=== PATIENT | male | born 1930 | race Caucasian/White ===

== ENCOUNTER → 2016-08-27 | Outpatient (CLI) | payer MEDICARE, OTHER ==
[~2016-08-27] MED LIST: ALBU83IN INH; ATEN50TA2 PO; ATOR40TA PO; CEFD300CAP PO; DULE200A INH; ELIQ5TAB PO; FURO20TA2 PO; GLIM2TAB PO; LASI40TA PO; LEVO125T41 PO; LISI-538 PO; METF500T PO; POTA10CA PO; SPIR1CAP INH
[2016-08-27 15:11] LABS: ALBUMIN 3.1 GM/DL (3.2-5.2); ALBUMIN/GLOBULIN RATIO 0.78 (1.00-1.93); BILIRUBIN,TOTAL 0.6 MG/DL (0.2-1.0); CALCIUM LEVEL 8.4 MG/DL (8.8-10.2); CREATININE FOR GFR 2.16 MG/DL (0.70-1.30); FREE T4 1.13 NG/DL (0.76-1.46); POTASSIUM SERUM 4.7 MEQ/L (3.5-5.1); TOTAL PROTEIN 7.1 GM/DL (6.4-8.2)
== END ==
LOC: M WUC 10:54
PROVIDERS: ATTEND Nurse Practitioner Family
DX: E11.9 Type 2 diabetes mellitus without complications (principal); E03.9 Hypothyroidism, unspecified

== ENCOUNTER → 2016-11-26 | Outpatient (CLI) | payer MEDICARE, OTHER ==
[2016-11-26 17:15] LABS: ALBUMIN 2.8 GM/DL (3.2-5.2); ALBUMIN/GLOBULIN RATIO 0.7 (1.00-1.93); BILIRUBIN,TOTAL 0.7 MG/DL (0.2-1.0); CALCIUM LEVEL 8.2 MG/DL (8.8-10.2); CREATININE FOR GFR 2.31 MG/DL (0.70-1.30); FREE T4 1.37 NG/DL (0.76-1.46); GLOMERULAR FILTRATION RATE 28.6 (>35); POTASSIUM SERUM 4.1 MEQ/L (3.5-5.1); TOTAL PROTEIN 6.8 GM/DL (6.4-8.2)
== END ==
LOC: M WUC 14:01
PROVIDERS: ATTEND Nurse Practitioner Family
DX: N18.9 Chronic kidney disease, unspecified (principal); E03.9 Hypothyroidism, unspecified; E11.9 Type 2 diabetes mellitus without complications

== ENCOUNTER → 2017-03-15 | Outpatient (CLI) | payer MEDICARE, OTHER ==
[~2017-03-15] MED LIST changes: -ATOR40TA PO; +ATOR40TA75 PO; -METF500T PO; +METF500T13 PO
[2017-03-15 13:38] LABS: ALBUMIN 2.9 GM/DL (3.2-5.2); ALBUMIN/GLOBULIN RATIO 0.69 (1.00-1.93); BILIRUBIN,TOTAL 0.7 MG/DL (0.2-1.0); CALCIUM LEVEL 8.1 MG/DL (8.8-10.2); CREATININE FOR GFR 2.12 MG/DL (0.70-1.30); FREE T4 1.21 NG/DL (0.76-1.46); GLOMERULAR FILTRATION RATE 31.6 (>35); POTASSIUM SERUM 4.5 MEQ/L (3.5-5.1); TOTAL PROTEIN 7.1 GM/DL (6.4-8.2)
== END ==
LOC: M WUC 09:18
PROVIDERS: ATTEND Nurse Practitioner Family
DX: I10 Essential (primary) hypertension (principal); E03.9 Hypothyroidism, unspecified; E11.9 Type 2 diabetes mellitus without complications

== ENCOUNTER 2017-09-28 17:24 | Inpatient (IN) | payer MEDICARE, OTHER ==
[2017-09-28 15:50] LABS: VENOUS BASE EXCESS 1.8 (-2.0-2.0); VENOUS HCO3 28.3 MEQ/L (23.0-27.0); VENOUS O2 SATURATION 46.4 % (60.0-80.0); VENOUS PARTIAL PRESSURE CO2 51.8 mmHg (38.0-50.0); VENOUS PARTIAL PRESSURE O2 26.7 mmHg (30.0-50.0); VENOUS PH 7.355 UNITS (7.330-7.430); VENOUS STANDARD HCO3 24.8 MEQ/L; VENOUS TOTAL CO2 29.9 MEQ/L (24.0-28.0)
[2017-09-28 15:51] LABS: BASO # 0.1 10^3/uL (0.0-0.2); BASO % 0.8 % (0.0-1.0); EOS # 0.3 10^3/uL (0.0-0.50); EOS % 2.9 % (0.0-3.0); HEMATOCRIT 38.8 % (42.0-52.0); HEMOGLOBIN 12.7 g/dl (13.5-17.5); IMMATURE GRANULOCYTE % 0.3 % (0-3.0); LYMPH # 0.8 10^3/uL (1.5-4.5); LYMPH % 9.1 % (24.0-44.0); MEAN CORPUSCULAR HEMOGLOBIN 30.6 pg (27.0-33.0); MEAN CORPUSCULAR HGB CONC 32.7 g/dl (32.0-36.5); MEAN CORPUSCULAR VOLUME 93.5 fl (80.0-96.0); MONO % 11.7 % (0.0-5.0); NEUTROPHILS # 6.5 10^3/uL (1.8-7.7); NEUTROPHILS % 75.2 % (36.0-66.0); PLATELET COUNT, AUTOMATED 218 10^3/uL (150-450); RED BLOOD COUNT 4.15 10^6/uL (4.30-6.10); RED CELL DISTRIBUTION WIDTH 14.3 % (11.5-14.5); WHITE BLOOD COUNT 8.6 10^3/uL (4.0-10.0)
[2017-09-28] MEDS: FUROSEMIDE 40 MG/4 ML VIAL (J1940) IV (16:13)
[2017-09-28 16:25] LABS: ANION GAP 6 MEQ/L (8-16); BLOOD UREA NITROGEN 32 MG/DL (7-18); CALCIUM LEVEL 8.3 MG/DL (8.8-10.2); CARBON DIOXIDE LEVEL 29 MEQ/L (21-32); CHLORIDE LEVEL 106 MEQ/L (98-107); CPK CREATINE PHOSPHOKINASE 201 U/L (39-308); CREATININE FOR GFR 2.01 MG/DL (0.70-1.30); GLOMERULAR FILTRATION RATE 33.5 (>35); GLUCOSE, FASTING 131 MG/DL (70-100); POTASSIUM SERUM 4.1 MEQ/L (3.5-5.1); SODIUM LEVEL 141 MEQ/L (136-145); TROPONIN I 1.11 NG/ML (< 0.10)
[2017-09-28 16:26] LABS: CK-MB VALUE MASS 8.4 NG/ML (<3.6); MB/CK RELATIVE INDEX 4.17 (< OR =4); NT-PRO BNP 6748 PG/ML (<450)
[2017-09-28 16:59] LABS: INFLUENZA A AMPLIFICATION NEGATIVE (NEGATIVE); INFLUENZA B AMPLIFICATION NEGATIVE (NEGATIVE)
[2017-09-28 19:44] LABS: CPK CREATINE PHOSPHOKINASE 186 U/L (39-308); MB/CK RELATIVE INDEX 4.83 (< OR =4); TROPONIN I 1.02 NG/ML (< 0.10)
[2017-09-28] MEDS ORDERED: ONDANSETRON 4MG/2ML VIAL (J2405) IV (20:15)
[2017-09-28] MEDS ORDERED: GLUCAGON FOR INJ 1 MG VIAL (J1610) SC (20:15)
[2017-09-28] MEDS ORDERED: DEXTROSE 50% 50 ML SYRINGE IV (20:15)
[2017-09-28] MEDS ORDERED: ACETAMINOPHEN TAB 650MG DOSE (2X325MG) PO (20:15)
[2017-09-28] MEDS ORDERED: GLUCOSE 4 GM CHEW TABLET PO (20:15)
[2017-09-28] MEDS: HumaLOG INSULIN (NovoLOG) PER UNIT SC (21:00)
[2017-09-28] MEDS: ADVAIR HFA 230/21MCG INHALER INH (21:00)
[2017-09-28] MEDS: ATORVASTATIN 20 MG TAB PO (22:07)
[2017-09-28] MEDS: APIXABAN 2.5 MG TAB (ELIQUIS) PO (22:07)
[2017-09-29] MEDS: IPRATROPIUM 0.5MG/ALBUTEROL 2.5MG INH SOL UD 3ML (DUONEB)(J7620) NEB ×5 (01:21→21:00)
[2017-09-29 03:38] LABS: CK-MB VALUE MASS 6.1 NG/ML (<3.6); CPK CREATINE PHOSPHOKINASE 145 U/L (39-308); TROPONIN I 1.18 NG/ML (< 0.10)
[2017-09-29] MEDS: LEVOTHYROXINE 125MCG TABLET (0.125MG) PO (05:39)
[2017-09-29] MEDS: HumaLOG INSULIN (NovoLOG) PER UNIT SC ×4 (07:30→21:00)
[2017-09-29 07:37] LABS: HEMATOCRIT 37.4 % (42.0-52.0); HEMOGLOBIN 12.1 g/dl (13.5-17.5); MEAN CORPUSCULAR HEMOGLOBIN 30.3 pg (27.0-33.0); MEAN CORPUSCULAR HGB CONC 32.4 g/dl (32.0-36.5); MEAN CORPUSCULAR VOLUME 93.7 fl (80.0-96.0); PLATELET COUNT, AUTOMATED 222 10^3/uL (150-450); RED BLOOD COUNT 3.99 10^6/uL (4.30-6.10); RED CELL DISTRIBUTION WIDTH 14.1 % (11.5-14.5); WHITE BLOOD COUNT 7.5 10^3/uL (4.0-10.0)
[2017-09-29 07:38] LABS: BEDSIDE GLUCOSE 83 MG/DL (83-110)
[2017-09-29 07:39] LABS: BEDSIDE GLUCOSE 64 MG/DL (83-110)
[2017-09-29 07:44] LABS: ALBUMIN 2.4 GM/DL (3.2-5.2); ALBUMIN/GLOBULIN RATIO 0.53 (1.00-1.93); ALKALINE PHOSPHATASE 165 U/L (45-117); ALT/SGPT 39 U/L (12-78); ANION GAP 5 MEQ/L (8-16); AST/SGOT 34 U/L (7-37); BILIRUBIN,TOTAL 0.7 MG/DL (0.2-1.0); BLOOD UREA NITROGEN 38 MG/DL (7-18); CALCIUM LEVEL 8.2 MG/DL (8.8-10.2); CARBON DIOXIDE LEVEL 29 MEQ/L (21-32); CHLORIDE LEVEL 111 MEQ/L (98-107); CREATININE FOR GFR 1.89 MG/DL (0.70-1.30); GLUCOSE, FASTING 54 MG/DL (70-100); MAGNESIUM LEVEL 2.4 MG/DL (1.8-2.4); SODIUM LEVEL 145 MEQ/L (136-145); TOTAL PROTEIN 6.9 GM/DL (6.4-8.2)
[2017-09-29] MEDS: TIOTROPIUM INHALER/CAPSULE (SPIRIVA) INH (07:50)
[2017-09-29] MEDS: ADVAIR HFA 230/21MCG INHALER INH ×2 (07:50→21:00)
[2017-09-29] MEDS: ASPIRIN 81 MG ENTERIC TAB PO (08:23)
[2017-09-29] MEDS: POTASSIUM CHLORIDE 10 MEQ SR TABLET PO (08:23)
[2017-09-29] MEDS: MULTIVITAMINS/MINERALS THERAP 1 TAB PO (08:23)
[2017-09-29] MEDS: APIXABAN 2.5 MG TAB (ELIQUIS) PO ×2 (08:23→21:13)
[2017-09-29] MEDS: FUROSEMIDE 40 MG/4 ML VIAL (J1940) IV ×2 (08:23→16:21)
[2017-09-29 15:16] LABS: CPK CREATINE PHOSPHOKINASE 155 U/L (39-308); TROPONIN I 1.13 NG/ML (< 0.10)
[2017-09-29 15:17] LABS: CK-MB VALUE MASS 6.1 NG/ML (<3.6); MB/CK RELATIVE INDEX 3.93 (< OR =4); NT-PRO BNP 7329 PG/ML (<450)
[2017-09-29 18:02] LABS: BEDSIDE GLUCOSE 119 MG/DL (83-110)
[2017-09-29 18:02] LABS: BEDSIDE GLUCOSE 199 MG/DL (83-110)
[2017-09-29] MEDS: ATORVASTATIN 20 MG TAB PO (21:13)
[2017-09-29] MEDS: LEVEMIR (INSULIN DETEMIR) 1 UNITS/0.01ML SC (21:14)
[2017-09-29 21:18] LABS: CK-MB VALUE MASS 6.3 NG/ML (<3.6); CPK CREATINE PHOSPHOKINASE 180 U/L (39-308); TROPONIN I 1.19 NG/ML (< 0.10)
[2017-09-30] MEDS: IPRATROPIUM 0.5MG/ALBUTEROL 2.5MG INH SOL UD 3ML (DUONEB)(J7620) NEB ×5 (02:18→19:41)
[2017-09-30 05:27] LABS: HEMATOCRIT 36.7 % (42.0-52.0); HEMOGLOBIN 11.8 g/dl (13.5-17.5); MEAN CORPUSCULAR HGB CONC 32.2 g/dl (32.0-36.5); MEAN CORPUSCULAR VOLUME 93.4 fl (80.0-96.0); PLATELET COUNT, AUTOMATED 224 10^3/uL (150-450); RED BLOOD COUNT 3.93 10^6/uL (4.30-6.10); RED CELL DISTRIBUTION WIDTH 13.9 % (11.5-14.5); WHITE BLOOD COUNT 7.3 10^3/uL (4.0-10.0)
[2017-09-30 05:50] LABS: ALBUMIN 2.4 GM/DL (3.2-5.2); ALBUMIN/GLOBULIN RATIO 0.52 (1.00-1.93); ALKALINE PHOSPHATASE 170 U/L (45-117); ALT/SGPT 39 U/L (12-78); ANION GAP 4 MEQ/L (8-16); AST/SGOT 34 U/L (7-37); BILIRUBIN,TOTAL 0.5 MG/DL (0.2-1.0); BLOOD UREA NITROGEN 37 MG/DL (7-18); CALCIUM LEVEL 7.8 MG/DL (8.8-10.2); CARBON DIOXIDE LEVEL 30 MEQ/L (21-32); CHLORIDE LEVEL 108 MEQ/L (98-107); CREATININE FOR GFR 1.89 MG/DL (0.70-1.30); GLUCOSE, FASTING 71 MG/DL (70-100); MAGNESIUM LEVEL 2.3 MG/DL (1.8-2.4); POTASSIUM SERUM 3.7 MEQ/L (3.5-5.1); SODIUM LEVEL 142 MEQ/L (136-145)
[2017-09-30] MEDS: LEVOTHYROXINE 125MCG TABLET (0.125MG) PO (06:29)
[2017-09-30] MEDS: HumaLOG INSULIN (NovoLOG) PER UNIT SC ×4 (07:30→20:15)
[2017-09-30] MEDS: TIOTROPIUM INHALER/CAPSULE (SPIRIVA) INH (08:19)
[2017-09-30] MEDS: ADVAIR HFA 230/21MCG INHALER INH ×2 (08:20→19:41)
[2017-09-30] MEDS: MULTIVITAMINS/MINERALS THERAP 1 TAB PO (08:33)
[2017-09-30] MEDS: APIXABAN 2.5 MG TAB (ELIQUIS) PO ×2 (08:34→20:15)
[2017-09-30] MEDS: ASPIRIN 81 MG ENTERIC TAB PO (08:34)
[2017-09-30] MEDS: FUROSEMIDE 40 MG/4 ML VIAL (J1940) IV ×2 (08:34→18:05)
[2017-09-30] MEDS: POTASSIUM CHLORIDE 10 MEQ SR TABLET PO (08:34)
[2017-09-30] MEDS: amLODIPine 5 MG TAB PO ×2 (12:51→20:15)
[2017-09-30 13:02] LABS: BEDSIDE GLUCOSE 119 MG/DL (83-110)
[2017-09-30 17:33] LABS: BEDSIDE GLUCOSE 166 MG/DL (83-110)
[2017-09-30] MEDS: SPIRONOLACTONE 12.5MG PER 1/2 TABLET PO (18:04)
[2017-09-30 19:50] LABS: BEDSIDE GLUCOSE 182 MG/DL (83-110)
[2017-09-30] MEDS: ATORVASTATIN 20 MG TAB PO (20:15)
[2017-09-30] MEDS: LEVEMIR (INSULIN DETEMIR) 1 UNITS/0.01ML SC (20:16)
[2017-09-30 20:40] LABS: BEDSIDE GLUCOSE 200 MG/DL (83-110)
[2017-10-01] MEDS: IPRATROPIUM 0.5MG/ALBUTEROL 2.5MG INH SOL UD 3ML (DUONEB)(J7620) NEB ×4 (00:46→20:00)
[2017-10-01] MEDS: LEVOTHYROXINE 125MCG TABLET (0.125MG) PO (05:52)
[2017-10-01 06:06] LABS: HEMATOCRIT 36.6 % (42.0-52.0); HEMOGLOBIN 11.8 g/dl (13.5-17.5); MEAN CORPUSCULAR HEMOGLOBIN 30.1 pg (27.0-33.0); MEAN CORPUSCULAR HGB CONC 32.2 g/dl (32.0-36.5); MEAN CORPUSCULAR VOLUME 93.4 fl (80.0-96.0); PLATELET COUNT, AUTOMATED 227 10^3/uL (150-450); RED BLOOD COUNT 3.92 10^6/uL (4.30-6.10); RED CELL DISTRIBUTION WIDTH 14.1 % (11.5-14.5); WHITE BLOOD COUNT 7.2 10^3/uL (4.0-10.0)
[2017-10-01 06:26] LABS: CK-MB VALUE MASS 2.8 NG/ML (<3.6); CPK CREATINE PHOSPHOKINASE 74 U/L (39-308); MB/CK RELATIVE INDEX 3.78 (< OR =4); TROPONIN I 0.86 NG/ML (< 0.10)
[2017-10-01 06:28] LABS: ALBUMIN 2.5 GM/DL (3.2-5.2); ALBUMIN/GLOBULIN RATIO 0.61 (1.00-1.93); ALKALINE PHOSPHATASE 161 U/L (45-117); ALT/SGPT 42 U/L (12-78); ANION GAP 5 MEQ/L (8-16); AST/SGOT 32 U/L (7-37); BILIRUBIN,TOTAL 0.5 MG/DL (0.2-1.0); BLOOD UREA NITROGEN 34 MG/DL (7-18); CALCIUM LEVEL 7.8 MG/DL (8.8-10.2); CARBON DIOXIDE LEVEL 31 MEQ/L (21-32); CHLORIDE LEVEL 108 MEQ/L (98-107); CREATININE FOR GFR 1.72 MG/DL (0.70-1.30); GLOMERULAR FILTRATION RATE 40.1 (>35); GLUCOSE, FASTING 68 MG/DL (70-100); MAGNESIUM LEVEL 2.4 MG/DL (1.8-2.4); SODIUM LEVEL 144 MEQ/L (136-145); TOTAL PROTEIN 6.6 GM/DL (6.4-8.2)
[2017-10-01] MEDS: HumaLOG INSULIN (NovoLOG) PER UNIT SC ×4 (07:19→20:43)
[2017-10-01] MEDS: ADVAIR HFA 230/21MCG INHALER INH ×2 (07:28→20:41)
[2017-10-01] MEDS: TIOTROPIUM INHALER/CAPSULE (SPIRIVA) INH (07:28)
[2017-10-01] MEDS: ASPIRIN 81 MG ENTERIC TAB PO (08:00)
[2017-10-01] MEDS: APIXABAN 2.5 MG TAB (ELIQUIS) PO ×2 (08:01→20:43)
[2017-10-01] MEDS: POTASSIUM CHLORIDE 10 MEQ SR TABLET PO (08:01)
[2017-10-01] MEDS: SPIRONOLACTONE 12.5MG PER 1/2 TABLET PO (08:01)
[2017-10-01] MEDS: MULTIVITAMINS/MINERALS THERAP 1 TAB PO (08:01)
[2017-10-01] MEDS: amLODIPine 5 MG TAB PO (08:01)
[2017-10-01] MEDS: FUROSEMIDE 40 MG/4 ML VIAL (J1940) IV ×2 (08:02→17:44)
[2017-10-01] MEDS: METAMUCIL (PSYLLIUM) PACKET PO (11:14)
[2017-10-01] MEDS: ISOSORBIDE MONONITRATE 10MG TABLET PO ×2 (11:14→17:42)
[2017-10-01 12:05] LABS: BEDSIDE GLUCOSE 189 MG/DL (83-110)
[2017-10-01 20:23] LABS: BEDSIDE GLUCOSE 241 MG/DL (83-110)
[2017-10-01 20:23] LABS: BEDSIDE GLUCOSE 148 MG/DL (83-110)
[2017-10-01] MEDS: ATORVASTATIN 20 MG TAB PO (20:43)
[2017-10-01] MEDS: LEVEMIR (INSULIN DETEMIR) 1 UNITS/0.01ML SC (20:43)
[2017-10-02] MEDS: IPRATROPIUM 0.5MG/ALBUTEROL 2.5MG INH SOL UD 3ML (DUONEB)(J7620) NEB ×4 (01:50→20:00)
[2017-10-02 04:15] LABS: HEMATOCRIT 34.9 % (42.0-52.0); HEMOGLOBIN 11.2 g/dl (13.5-17.5); MEAN CORPUSCULAR HGB CONC 32.1 g/dl (32.0-36.5); MEAN CORPUSCULAR VOLUME 93.6 fl (80.0-96.0); PLATELET COUNT, AUTOMATED 228 10^3/uL (150-450); RED BLOOD COUNT 3.73 10^6/uL (4.30-6.10); RED CELL DISTRIBUTION WIDTH 14.1 % (11.5-14.5); WHITE BLOOD COUNT 7.6 10^3/uL (4.0-10.0)
[2017-10-02 04:37] LABS: ALBUMIN 2.4 GM/DL (3.2-5.2); ALBUMIN/GLOBULIN RATIO 0.56 (1.00-1.93); ALKALINE PHOSPHATASE 172 U/L (45-117); ALT/SGPT 41 U/L (12-78); ANION GAP 6 MEQ/L (8-16); AST/SGOT 28 U/L (7-37); BILIRUBIN,TOTAL 0.4 MG/DL (0.2-1.0); BLOOD UREA NITROGEN 38 MG/DL (7-18); CALCIUM LEVEL 7.9 MG/DL (8.8-10.2); CARBON DIOXIDE LEVEL 30 MEQ/L (21-32); CHLORIDE LEVEL 108 MEQ/L (98-107); CREATININE FOR GFR 2.26 MG/DL (0.70-1.30); GLOMERULAR FILTRATION RATE 29.3 (>35); GLUCOSE, FASTING 198 MG/DL (70-100); MAGNESIUM LEVEL 2.3 MG/DL (1.8-2.4); SODIUM LEVEL 144 MEQ/L (136-145); TOTAL PROTEIN 6.7 GM/DL (6.4-8.2)
[2017-10-02] MEDS: LEVOTHYROXINE 125MCG TABLET (0.125MG) PO (06:12)
[2017-10-02] MEDS: ISOSORBIDE MONONITRATE 10MG TABLET PO ×2 (06:14→17:30)
[2017-10-02] MEDS: SPIRONOLACTONE 12.5MG PER 1/2 TABLET PO (07:57)
[2017-10-02] MEDS: METAMUCIL (PSYLLIUM) PACKET PO (07:57)
[2017-10-02] MEDS: HumaLOG INSULIN (NovoLOG) PER UNIT SC ×4 (07:57→20:38)
[2017-10-02] MEDS: MULTIVITAMINS/MINERALS THERAP 1 TAB PO (07:58)
[2017-10-02] MEDS: POTASSIUM CHLORIDE 10 MEQ SR TABLET PO (07:58)
[2017-10-02] MEDS: APIXABAN 2.5 MG TAB (ELIQUIS) PO ×2 (07:58→20:38)
[2017-10-02] MEDS: FUROSEMIDE 40 MG/4 ML VIAL (J1940) IV (07:58)
[2017-10-02] MEDS: ASPIRIN 81 MG ENTERIC TAB PO (07:58)
[2017-10-02] MEDS: TIOTROPIUM INHALER/CAPSULE (SPIRIVA) INH (08:01)
[2017-10-02] MEDS: ADVAIR HFA 230/21MCG INHALER INH ×2 (08:02→20:23)
[2017-10-02 12:39] LABS: BEDSIDE GLUCOSE 89 MG/DL (83-110)
[2017-10-02 17:24] LABS: BEDSIDE GLUCOSE 177 MG/DL (83-110)
[2017-10-02] MEDS: FUROSEMIDE 40 MG TAB PO (17:30)
[2017-10-02] MEDS: LEVEMIR (INSULIN DETEMIR) 1 UNITS/0.01ML SC (20:37)
[2017-10-02] MEDS: ATORVASTATIN 20 MG TAB PO (20:38)
[2017-10-02 20:40] LABS: BEDSIDE GLUCOSE 151 MG/DL (83-110)
[2017-10-03] MEDS: IPRATROPIUM 0.5MG/ALBUTEROL 2.5MG INH SOL UD 3ML (DUONEB)(J7620) NEB (02:00)
[2017-10-03 05:18] LABS: HEMATOCRIT 35.6 % (42.0-52.0); HEMOGLOBIN 11.3 g/dl (13.5-17.5); MEAN CORPUSCULAR HEMOGLOBIN 29.2 pg (27.0-33.0); MEAN CORPUSCULAR HGB CONC 31.7 g/dl (32.0-36.5); PLATELET COUNT, AUTOMATED 257 10^3/uL (150-450); RED BLOOD COUNT 3.87 10^6/uL (4.30-6.10); RED CELL DISTRIBUTION WIDTH 13.9 % (11.5-14.5); WHITE BLOOD COUNT 7.9 10^3/uL (4.0-10.0)
[2017-10-03 05:36] LABS: ALBUMIN 2.4 GM/DL (3.2-5.2); ALBUMIN/GLOBULIN RATIO 0.55 (1.00-1.93); ALKALINE PHOSPHATASE 160 U/L (45-117); ALT/SGPT 39 U/L (12-78); ANION GAP 5 MEQ/L (8-16); AST/SGOT 26 U/L (7-37); BILIRUBIN,TOTAL 0.5 MG/DL (0.2-1.0); BLOOD UREA NITROGEN 35 MG/DL (7-18); CALCIUM LEVEL 8.1 MG/DL (8.8-10.2); CARBON DIOXIDE LEVEL 29 MEQ/L (21-32); CHLORIDE LEVEL 108 MEQ/L (98-107); CREATININE FOR GFR 1.85 MG/DL (0.70-1.30); GLOMERULAR FILTRATION RATE 36.9 (>35); GLUCOSE, FASTING 99 MG/DL (70-100); MAGNESIUM LEVEL 2.4 MG/DL (1.8-2.4); POTASSIUM SERUM 4.1 MEQ/L (3.5-5.1); SODIUM LEVEL 142 MEQ/L (136-145); TOTAL PROTEIN 6.8 GM/DL (6.4-8.2)
[2017-10-03] MEDS: ISOSORBIDE MONONITRATE 10MG TABLET PO (06:16)
[2017-10-03] MEDS: LEVOTHYROXINE 125MCG TABLET (0.125MG) PO (06:16)
[2017-10-03] MEDS: HumaLOG INSULIN (NovoLOG) PER UNIT SC (07:30)
[2017-10-03] MEDS: ADVAIR HFA 230/21MCG INHALER INH (07:59)
[2017-10-03] MEDS: TIOTROPIUM INHALER/CAPSULE (SPIRIVA) INH (08:00)
[2017-10-03] MEDS: ASPIRIN 81 MG ENTERIC TAB PO (09:13)
[2017-10-03] MEDS: APIXABAN 2.5 MG TAB (ELIQUIS) PO (09:13)
[2017-10-03] MEDS: POTASSIUM CHLORIDE 10 MEQ SR TABLET PO (09:14)
[2017-10-03] MEDS: FUROSEMIDE 40 MG TAB PO (09:14)
[2017-10-03] MEDS: MULTIVITAMINS/MINERALS THERAP 1 TAB PO (09:14)
[2017-10-03] MEDS: METAMUCIL (PSYLLIUM) PACKET PO (09:19)
== END 2017-10-03 11:20 | disposition home or self-care (01) | DRG 291 ==
LOC: M ICU 09-30 02:58 → M PCU 10-01 15:09 → M ED 17:24 → M ED INP 20:11
DX: I13.0 Hypertensive heart and chronic kidney disease with heart failure and stage 1 through stage 4 chronic kidney disease, or unspecified chronic kidney disease (principal); I50.33 Acute on chronic diastolic (congestive) heart failure; I48.92 Unspecified atrial flutter; E78.5 Hyperlipidemia, unspecified; E11.22 Type 2 diabetes mellitus with diabetic chronic kidney disease; E03.9 Hypothyroidism, unspecified; I48.2 Chronic atrial fibrillation; N18.3 Chronic kidney disease, stage 3 (moderate); I44.0 Atrioventricular block, first degree; J44.9 Chronic obstructive pulmonary disease, unspecified; I27.29 Other secondary pulmonary hypertension; I25.10 Atherosclerotic heart disease of native coronary artery without angina pectoris; R26.81 Unsteadiness on feet; I45.10 Unspecified right bundle-branch block; F17.210 Nicotine dependence, cigarettes, uncomplicated; Z79.01 Long term (current) use of anticoagulants; Z79.4 Long term (current) use of insulin; Z79.899 Other long term (current) drug therapy; Z91.14 Patient's other noncompliance with medication regimen; Z79.82 Long term (current) use of aspirin

== ENCOUNTER → 2017-11-15 | Outpatient (CLI) | payer MEDICARE, OTHER ==
[2017-11-15 17:18] LABS: HEMATOCRIT 38.1 % (42.0-52.0); HEMOGLOBIN 11.8 g/dl (13.5-17.5); MEAN CORPUSCULAR HEMOGLOBIN 29.9 pg (27.0-33.0); MEAN CORPUSCULAR VOLUME 96.5 fl (80.0-96.0); PLATELET COUNT, AUTOMATED 234 10^3/uL (150-450); RED BLOOD COUNT 3.95 10^6/uL (4.30-6.10); RED CELL DISTRIBUTION WIDTH 15.6 % (11.5-14.5); WHITE BLOOD COUNT 7.8 10^3/uL (4.0-10.0)
[2017-11-15 19:27] LABS: ALBUMIN/GLOBULIN RATIO 0.73 (1.00-1.93); ALKALINE PHOSPHATASE 181 U/L (45-117); ALT/SGPT 26 U/L (12-78); ANION GAP 6 MEQ/L (8-16); AST/SGOT 21 U/L (7-37); BILIRUBIN,TOTAL 0.7 MG/DL (0.2-1.0); BLOOD UREA NITROGEN 39 MG/DL (7-18); CARBON DIOXIDE LEVEL 31 MEQ/L (21-32); CHLORIDE LEVEL 107 MEQ/L (98-107); CREATININE FOR GFR 2.23 MG/DL (0.70-1.30); GLOMERULAR FILTRATION RATE 29.8 (>35); GLUCOSE, FASTING 105 MG/DL (70-100); POTASSIUM SERUM 3.9 MEQ/L (3.5-5.1); SODIUM LEVEL 144 MEQ/L (136-145); TOTAL PROTEIN 7.1 GM/DL (6.4-8.2)
[2017-11-21 10:28] LABS: FOLATE > 24.0 NG/ML (>5.4); VITAMIN B12 LEVEL 484 PG/ML (247-911)
== END ==
LOC: M WUC 13:58
DX: N18.9 Chronic kidney disease, unspecified (principal); I50.9 Heart failure, unspecified
CPT/HCPCS: 82746

== ENCOUNTER → 2017-11-22 | Outpatient (CLI) | payer MEDICARE, OTHER | LOC: M RAD 12:14 | DX: J84.9 Interstitial pulmonary disease, unspecified (principal) | CPT/HCPCS: 71046 ==

== ENCOUNTER → 2018-02-13 | Outpatient (REF) | payer MEDICARE, OTHER | LOC: M SFHCPLAZ 09:23 | DX: N18.9 Chronic kidney disease, unspecified (principal); I50.9 Heart failure, unspecified; E55.9 Vitamin D deficiency, unspecified; E11.22 Type 2 diabetes mellitus with diabetic chronic kidney disease; Z53.8 Procedure and treatment not carried out for other reasons ==

== ENCOUNTER → 2018-02-21 | Outpatient (CLI) | payer MEDICARE, OTHER ==
[2018-02-21 16:44] LABS: HEMATOCRIT 42.4 % (42.0-52.0); HEMOGLOBIN 13.5 g/dl (13.5-17.5); MEAN CORPUSCULAR HEMOGLOBIN 29.1 pg (27.0-33.0); MEAN CORPUSCULAR HGB CONC 31.8 g/dl (32.0-36.5); MEAN CORPUSCULAR VOLUME 91.4 fl (80.0-96.0); PLATELET COUNT, AUTOMATED 201 10^3/uL (150-450); RED BLOOD COUNT 4.64 10^6/uL (4.30-6.10); RED CELL DISTRIBUTION WIDTH 16.6 % (11.5-14.5); WHITE BLOOD COUNT 6.8 10^3/uL (4.0-10.0)
[2018-02-21 17:11] LABS: ALBUMIN 2.9 GM/DL (3.2-5.2); ALBUMIN/GLOBULIN RATIO 0.66 (1.00-1.93); ALKALINE PHOSPHATASE 189 U/L (45-117); ALT/SGPT 29 U/L (12-78); ANION GAP 8 MEQ/L (8-16); AST/SGOT 19 U/L (7-37); BILIRUBIN,TOTAL 0.5 MG/DL (0.2-1.0); BLOOD UREA NITROGEN 38 MG/DL (7-18); CALCIUM LEVEL 8.4 MG/DL (8.8-10.2); CARBON DIOXIDE LEVEL 31 MEQ/L (21-32); CHLORIDE LEVEL 103 MEQ/L (98-107); CREATININE FOR GFR 2.15 MG/DL (0.70-1.30); GLUCOSE, FASTING 180 MG/DL (70-100); POTASSIUM SERUM 4.6 MEQ/L (3.5-5.1); SODIUM LEVEL 142 MEQ/L (136-145); TOTAL PROTEIN 7.3 GM/DL (6.4-8.2)
[2018-02-21 17:49] LABS: TOTAL 25(OH) VITAMIN D 62.5 NG/ML (30.0-100.0)
[2018-02-21 19:37] LABS: ESTIMATED AVERAGE GLUCOSE 140 MG/DL (60-110); HEMOGLOBIN A1c 6.5 %
== END ==
LOC: M WUC 14:34
DX: N18.9 Chronic kidney disease, unspecified (principal); I50.9 Heart failure, unspecified; E55.9 Vitamin D deficiency, unspecified; E11.9 Type 2 diabetes mellitus without complications
CPT/HCPCS: 80053

== ENCOUNTER → 2018-05-19 | Outpatient (REF) | payer MEDICARE, OTHER ==
[2018-05-19 13:08] LABS: ALBUMIN 2.9 GM/DL (3.2-5.2); ALBUMIN/GLOBULIN RATIO 0.66 (1.00-1.93); ALKALINE PHOSPHATASE 224 U/L (45-117); ALT/SGPT 29 U/L (12-78); ANION GAP 9 MEQ/L (8-16); AST/SGOT 18 U/L (7-37); BILIRUBIN,TOTAL 0.6 MG/DL (0.2-1.0); BLOOD UREA NITROGEN 32 MG/DL (7-18); CARBON DIOXIDE LEVEL 32 MEQ/L (21-32); CHLORIDE LEVEL 102 MEQ/L (98-107); GLOMERULAR FILTRATION RATE 28.7 (>35); GLUCOSE, FASTING 66 MG/DL (70-100); SODIUM LEVEL 143 MEQ/L (136-145); THYROID STIMULATING HORMONE 0.787 uIU/ML (0.358-3.740); TOTAL PROTEIN 7.3 GM/DL (6.4-8.2)
[2018-05-19 13:21] LABS: ESTIMATED AVERAGE GLUCOSE 171 MG/DL (60-110); HEMOGLOBIN A1c 7.6 %
== END ==
LOC: M SFHCPLAZ 10:52
DX: E11.22 Type 2 diabetes mellitus with diabetic chronic kidney disease (principal); I12.9 Hypertensive chronic kidney disease with stage 1 through stage 4 chronic kidney disease, or unspecified chronic kidney disease; N18.3 Chronic kidney disease, stage 3 (moderate); E03.9 Hypothyroidism, unspecified
CPT/HCPCS: 84443

== ENCOUNTER → 2018-08-24 | Outpatient (CLI) | payer MEDICARE, OTHER ==
[~2018-08-24] MED LIST changes: +ASPI1TAB PO; +ELIQ2.5T PO; +FURO80TA2 PO; +INSULADS SC; +ISOS10TAB PO; +KLOR10TA76 PO; -LASI40TA PO; +LASI40TA9 PO; +MULT1TAB10 PO; +OCUVTAB4 PO; +ONGL10TA3 PO; -POTA10CA PO; +ROCA0.25 PO; +SYSTSOL14 OU
[2018-08-24 17:09] LABS: HEMOGLOBIN 14.8 g/dl (13.5-17.5); MEAN CORPUSCULAR HEMOGLOBIN 30.9 pg (27.0-33.0); MEAN CORPUSCULAR HGB CONC 30.8 g/dl (32.0-36.5); MEAN CORPUSCULAR VOLUME 100.2 fl (80.0-96.0); PLATELET COUNT, AUTOMATED 187 10^3/uL (150-450); RED BLOOD COUNT 4.79 10^6/uL (4.30-6.10); WHITE BLOOD COUNT 5.9 10^3/uL (4.0-10.0)
[2018-08-24 18:01] LABS: HEMOGLOBIN A1c 7.5 %
[2018-08-24 18:09] LABS: BILIRUBIN,TOTAL 0.7 MG/DL (0.2-1.0); CALCIUM LEVEL 8.2 MG/DL (8.8-10.2); CREATININE FOR GFR 2.12 MG/DL (0.70-1.30); FREE T4 1.36 NG/DL (0.76-1.46); GLOMERULAR FILTRATION RATE 31.5 (>35); THYROID STIMULATING HORMONE 0.406 uIU/ML (0.358-3.740); TOTAL PROTEIN 7.8 GM/DL (6.4-8.2)
== END ==
LOC: M WUC 15:02
PROVIDERS: ATTEND Nurse Practitioner Family
DX: I13.10 Hypertensive heart and chronic kidney disease without heart failure, with stage 1 through stage 4 chronic kidney disease, or unspecified chronic kidney disease (principal); N18.3 Chronic kidney disease, stage 3 (moderate); D63.1 Anemia in chronic kidney disease; E03.9 Hypothyroidism, unspecified; E11.9 Type 2 diabetes mellitus without complications
CPT/HCPCS: 36415; 80053; 83036; 84439; 84443; 85027; G0463

== ENCOUNTER → 2018-08-24 | Outpatient (REF) | payer MEDICARE, OTHER | LOC: M SFHCPLAZ 14:19 | PROVIDERS: ATTEND Nurse Practitioner Family | DX: I11.0 Hypertensive heart disease with heart failure (principal); E11.9 Type 2 diabetes mellitus without complications; N18.3 Chronic kidney disease, stage 3 (moderate); D63.1 Anemia in chronic kidney disease; E03.9 Hypothyroidism, unspecified; Z53.8 Procedure and treatment not carried out for other reasons ==

== ENCOUNTER → 2018-12-28 | Outpatient (REF) | payer MEDICARE, OTHER ==
[~2018-12-28] MED LIST changes: -ASPI1TAB PO; +ASPI81TA26 PO; +CEFD300C41 PO; -CEFD300CAP PO
[2018-12-28 19:50] LABS: CALCIUM LEVEL 8.6 MG/DL (8.8-10.2); CREATININE FOR GFR 2.47 MG/DL (0.70-1.30); FREE T4 1.21 NG/DL (0.76-1.46); GLOMERULAR FILTRATION RATE 26.4 (>35); POTASSIUM SERUM 4.9 MEQ/L (3.5-5.1); THYROID STIMULATING HORMONE 0.802 uIU/ML (0.358-3.740)
== END ==
LOC: M SFHCADAM 14:11
PROVIDERS: ATTEND Family Medicine
DX: E11.9 Type 2 diabetes mellitus without complications (principal); E03.9 Hypothyroidism, unspecified

== ENCOUNTER 2019-01-23 11:22 | Emergency (ER) | payer MEDICARE, OTHER ==
[~2019-01-23] VITALS: Ht 172.7 cm; Wt 63.6 kg
[2019-01-23] MEDS ORDERED: ADACEL/BOOSTRIX VACCINE (DIPHTH/PERTUSS/ACELL/TETANUS)0.5ML SYR (90715) IM ONE (12:00)
--- NOTE | 2019-01-23 12:10 | REP ---
CT HEAD WITHOUT CONTRAST: HISTORY: Injury. Areas of decreased attenuation are present in the right internal capsule and left basal ganglia. These represent old lacunar infarctions. Areas of decreased attentuation are present in the periventricular and subcortical white matter. This represents small lateral ischemic disease. There is no intraparenchymal hemorrhage, mass, or midline shift. The ventricular system and cortical sulci are dilated consistent with mild volume loss. There is no extracerebral collection. There is no fracture. Soft tissue swelling is present overlying the right frontal bone and orbit. IMPRESSION: 1. 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 2. Small vessel ischemic disease. 3. Mild volume loss. Electronically Signed by Van Barclay MD 01/23/2019 12:15 P
--- NOTE | 2019-01-23 12:20 | REP ---
MAXILLOFACIAL CT WITHOUT CONTRAST: HISTORY: Injury. Minimal mucosal thickening is present in the right frontal sinus. The remaining sinuses are clear. The ostiomeatal units are patent. The middle and inferior nasal turbinates are partially paradoxical. There is minimal deviation of the nasal septum to the right. A spur is present arising from the right side of the nasal septum. The cribriform plate, medial concepcion of the orbits and optic canals are intact. The carotid canals form a segment of the posterolateral concepcion of the sphenoid sinus. There is no fracture. Soft tissue swelling is present over the right orbit and frontal bone. IMPRESSION: 1. Sinus mucosal thickening as described above. 2. There is no fracture. Electronically Signed by Van Barclay MD 01/23/2019 12:27 P
[2019-01-23 13:04] VITALS: BP 118/70
== END 2019-01-23 13:05 | disposition home or self-care (01) ==
LOC: M ED 11:22
DX: S00.11XA Contusion of right eyelid and periocular area, initial encounter (principal); S50.311A Abrasion of right elbow, initial encounter; S80.211A Abrasion, right knee, initial encounter; S80.212A Abrasion, left knee, initial encounter; W18.39XA Other fall on same level, initial encounter; Y92.018 Other place in single-family (private) house as the place of occurrence of the external cause; Z79.899 Other long term (current) drug therapy; Z79.4 Long term (current) use of insulin; Z79.01 Long term (current) use of anticoagulants

== ENCOUNTER → 2019-04-02 | Outpatient (REF) | payer MEDICARE, OTHER | LOC: M SFHCPLAZ 11:20 | PROVIDERS: ATTEND Nurse Practitioner Family | DX: E03.9 Hypothyroidism, unspecified (principal); E11.9 Type 2 diabetes mellitus without complications; I11.0 Hypertensive heart disease with heart failure; N18.3 Chronic kidney disease, stage 3 (moderate); E78.5 Hyperlipidemia, unspecified; Z53.8 Procedure and treatment not carried out for other reasons ==